=== PATIENT | female | born 1995 | race Caucasian/White ===

== ENCOUNTER → 2017-12-03 | Outpatient (CLI) | payer OTHER ==
--- NOTE | 2017-12-03 11:25 | RADIOLOGY IMAGING REPORT ---
FACILITY: [facility] PATIENT NAME: Su Shook : 1995 MR: [id number] V: [id number] EXAM DATE: ORDERING PHYSICIAN: ALIRIO ZUNIGA TECHNOLOGIST: Location: [facility] - [place] Patient: Su Shook : 1995 Visit/Account:[id number] Date of Sevice: 12/03/2017 BRAIN W/O CONTRAST Comparisons: None. Additional pertinent history: Increasing headaches over the past month. Pain worse on the right side of the head. TECHNIQUE: Multiplanar, multisequence brain MRI was performed without gadolinium contrast. FINDINGS: Sagittal midline structures and craniocervical junction: 1.2 cm uniform increased T2 signal lesion in the region of the pineal gland most consistent with underlying pineal cyst. Midline shift: None. Ventricles: Negative. Brain parenchyma: Diffusion weighted imaging: Negative. Gradient sequence: Negative. T2 weighted FLAIR images: Negative. Extra-axial spaces: Negative. Dural venous sinuses and major arterial flow voids: Negative. Mastoid air cells and paranasal sinuses: Moderate sized mucus retention cyst involving the left maxil fabricio sinus. Surrounding soft tissues and orbits: Negative. Impression: 1. 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 Given that this is slightly larger than 1 cm , a follow-up exam in one year would be of benefit to ensure stability. 2. Mild underlying paranasal sinus disease. 3. No other acute intracranial pathology. Report Dictated By: Sha Rachel MD at 12/03/2017 11:19 AM Report E-Signed By: Sha Rachel MD at 12/03/2017 11:22 AM WSN:[id number]
== END ==
LOC: MRI 02:50
PROVIDERS: ATTEND Emergency Medicine Sports Medicine
DX: D35.4 Benign neoplasm of pineal gland (principal)
CPT/HCPCS: 70551

== ENCOUNTER → 2018-11-23 | Outpatient (CLI) | payer OTHER ==
--- NOTE | 2018-11-23 11:15 | RADIOLOGY IMAGING REPORT ---
FACILITY: [facility] - [place] PATIENT NAME: Su Shook : 1995 MR: [id number] V: [id number] EXAM DATE: ORDERING PHYSICIAN: ALIRIO ZUNIGA TECHNOLOGIST: Location: [facility] - [place] Patient: Su Shook : 1995 Visit/Account:[id number] Date of Sevice: 11/23/2018 GALLBLADDER ultrasound HISTORY: Right-sided abdomen pain COMPARISON: None. FINDINGS: Gallbladder: Unremarkable; no stones or sludge. Liver: Negative. Common duct: Normal, 2.8 mm diameter. Pancreas: Partially obscured by bowel, visualized aspects unremarkable. Right kidney: Appears unremarkable measuring 10.4 cm in length Upper abdominal aorta and IVC: Patent. Ascites: None visualized. IMPRESSION: Unremarkable right upper quadrant ultrasound Report Dictated By: Khadra Serrato MD at 11/23/2018 11:01 AM Report E-Signed By: Khadra Serrato MD at 11/23/2018 11:11 AM WSN:[email or web address]
--- NOTE | 2018-11-23 11:19 | RADIOLOGY IMAGING REPORT ---
FACILITY: [facility] PATIENT NAME: Su Shook : 1995 MR: [id number] V: [id number] EXAM DATE: ORDERING PHYSICIAN: ALIRIO ZUNIGA TECHNOLOGIST: Location: [facility] - [place] Patient: Su Shook : 1995 Visit/Account:[id number] Date of Sevice: 11/23/2018 PELVIC HISTORY: Right-sided abdomen pain x2 months TECHNIQUE: Transvaginal and transabdominal ultrasound pelvis. COMPARISON: None. FINDINGS: Uterus: ; 7.2 cm length x 4.1 cm AP x 3.6 cm transverse. Myometrium: Unremarkable. Endometrium: Unremarkable; double thickness 10 mm. Cervix: Grossly negative. Ovaries: Right - 3.3 x 1.5 x 2.4 cm Left - 3.6 x 2.2 x 2.2 cm Blood flow is documented in each ovary by duplex Doppler ultrasound. Adnexa: Grossly unremarkable. Free pelvic fluid: Mild. IMPRESSION: There is a mild amount of free pelvic fluid otherwise unremarkable pelvic ultrasound Report Dictated By: Khadra Serrato MD at 11/23/2018 11:11 AM Report E-Signed By: Khadra Serrato MD at 11/23/2018 11:13 AM WSN:[email or web address]
== END ==
LOC: US 00:58
PROVIDERS: ATTEND Emergency Medicine Sports Medicine
DX: R10.11 Right upper quadrant pain (principal); R10.31 Right lower quadrant pain; R10.2 Pelvic and perineal pain
CPT/HCPCS: 76705; 76856

== ENCOUNTER → 2018-12-02 | Outpatient (CLI) | payer OTHER ==
--- NOTE | 2018-12-02 14:40 | RADIOLOGY IMAGING REPORT ---
FACILITY: [facility] - [place] PATIENT NAME: Su Shook : 1995 MR: [id number] V: [id number] EXAM DATE: ORDERING PHYSICIAN: ALIRIO ZUNIGA TECHNOLOGIST: Location: [facility] - [place] Patient: Su Shook : 1995 Visit/Account:[id number] Date of Sevice: 12/02/2018 CT scan of the abdomen and pelvis without contrast. HISTORY: Right lower quadrant pain. COMPARISON: Gallbladder and pelvic ultrasound 11/23/2018. 3 mm thick and [address] images were obtained of the abdomen and pelvis. No intravenous or oral contrast. One of the following dose optimization techniques was utilized in the performance of this exam: Automated exposure control; adjustment of the mA and/or kV according to the patient's siz e; or use of an iterative reconstruction technique. Specific details can be referenced in the [facility]'s radiology CT exam operational policy. The study is limited to the urinary tract for evaluation of stone disease. FINDINGS: The lung bases are clear. The liver and spleen are normal in size. The gallbladder and bile ducts are not well visualized. Th e pancreas is not well-visualized. The kidneys and adrenal glands are normal in size. No hydronephr osis. No abnormal renal or ureteral calcifications are identified. The uterus and ovaries are not well visualized. Trace free fluid is present in the pelvic cul-de-sac . Unopacified bowel loops are scattered in the abdomen and pelvis. The appendix not well-visualized . A small tubular structure is present in the right lower quadrant probably representing a normal-si zed posterior appendix. The retroperitoneum is not well-visualized. The bones are unremarkable. IMPRESSION: Negative for evidence of renal stone or obstruction. Trace free pelvic fluid. Report Dictated By: Chandler Mathur MD at 12/02/2018 2:29 PM Report E-Signed By: Chandler Mathur MD at 12/02/2018 2:36 PM WSN:[email or web address]
== END ==
LOC: CT 02:32
PROVIDERS: ATTEND Emergency Medicine Sports Medicine
DX: R10.11 Right upper quadrant pain (principal); R10.31 Right lower quadrant pain
CPT/HCPCS: 74176